=== PATIENT | female | born 1960 | race Caucasian/White ===

== ENCOUNTER 2017-01-14 07:25 | Day surgery (SDC) | payer MEDICARE, MEDICAID ==
[2016-12-23 07:24] VITALS: BMI 24.1
[2017-01-14] MEDS ORDERED: Bupivacaine HCl 0.5% PF (10 ml) Inj ONE (08:53)
[2017-01-14] MEDS ORDERED: Bacitracin 500 Units/gm Oint Foilpak UD ONE (08:53)
[2017-01-14] MEDS ORDERED: ceFAZolin IV 1 gm in Dextrose 1 GM/50 ML BAG IVPB ONE (08:53)
[2017-01-14] MEDS ORDERED: Lactated Ringer's 1,000 ML IV ONE (09:25)
[2017-01-14] MEDS ORDERED: Propofol 10 mg/ml Inj (20 ML) ONE ×2 (09:31→09:49)
[2017-01-14] MEDS ORDERED: Midazolam 2 MG/2 ML VIAL ONE (09:31)
[2017-01-14] MEDS ORDERED: Lidocaine 1% w Epi 1:100,000 Inj ONE (09:32)
[2017-01-14] MEDS ORDERED: Lidocaine Hydrochloride 5 ML INJ ONE (10:10)
[2017-01-14] MEDS ORDERED: Oxycodone/Acetaminophen 5/325 mg Tab PO PRN (10:20)
--- NOTE | 2017-01-14 10:20 | PCM.SURG1 ---
Surgeon's Initial Post Op Note - Surgeon's Notes Surgeon: Dr. Nicky Chávez Zipper Lining Folder: Carrie Velazquez, PGY2; Bran Benavidez, OMS3 Pre-Operative Diagnosis: Left wrist ganglion cyst Operative Findings: ganglion cyst of the left wrist Post-Operative Diagnosis: same Operation Performed: Left wrist ganglion cyst excision Specimen/Specimens Removed: ganglion cyst Estimated Blood Loss: EBL {In ML}: 3 Date of Surgery/Procedure: 01/14/17 Time of Surgery/Procedure: 09:30
[2017-01-14] MEDS ORDERED: HYDROmorphone 0.5 mg/0.5 ml ISec IVP PRN (10:27)
[2017-01-14] MEDS ORDERED: Lactated Ringer's 1,000 ML IV SCH (10:30)
[2017-01-14] MEDS ORDERED: Lactated Ringer's 500 ML IV ONE (11:40)
[2017-01-14 12:59] VITALS: BP 128/81; PULSE 65; RESP 16; TEMP 97.6; O2SAT 99
--- NOTE | 2017-01-20 23:10 | OP ---
PROCEDURE DATE: 01/14/2017 SURGEON: Nicky Chávez MD. VICE PRESIDENT SALES: Carrie Velazquez DO and MS III Bran Reema. PREOPERATIVE DIAGNOSIS: Left volar wrist ganglion. POSTOPERATIVE DIAGNOSIS: Left volar wrist ganglion. ANESTHESIA: Wrist block by surgeon and sedation. PROCEDURE: 1. Wrist block of left wrist. 2. Excision of volar wrist ganglion. ESTIMATED BLOOD LOSS: 10 mL. COUNT: Lap, sponge, needle count were correct at the end of the case. TOURNIQUET TIME: 15 minutes. CONDITION: Patient was stable upon discharge to recovery. INDICATIONS FOR SURGERY: Patient is a 56-year-old female with a left wrist volar ganglion. She is being worked up for cervical spine issues and has some mild carpal tunnel but the ganglion bothers her and would like to have this addressed. She is here for elective excision. PROCEDURE: Surgery is as follows. Patient was identified in the holding area. Left wrist was marked. She was then brought to the operating room and laid supine on the operating room table. Once sedation was provided, the left wrist was blocked with 10 mL of 1% lidocaine, 0.5% Marcaine, and 50:50 mixture in order to block the median nerve, ulnar nerve, radial, sensory and ulnar sensory nerves. The arm was then placed in a tourniquet, prepped and draped in a usual sterile fashion. Using an Esmarch, the arm was exsanguinated and tourniquet inflated to 250 mm of pressure for a total of 15 minutes. Using a sinusoidal incision along the volar radial aspect of the wrist, a 1.5 cm incision was made down through skin and dermis. The cyst was noted immediately under the skin and pressing the radial artery radially. Tenotomy scissors were used to carefully dissect the ganglion from the surrounding skin and from the surrounding tissue. The stalk appeared to be coming from the radial carpal joint and was fairly wide based stock. At the base of the ganglion, the stalk was divided with tenotomy scissors and then electrocautery was used to cauterize the base of the ganglion. The radial artery was noted to be intact. Once the tourniquet was deflated with a good bounding pulse. The wound was irrigated and incision closed using 4-0 Monocryl to the deep dermis, followed by 4-0 Monocryl, running subcuticular. A soft dressing was then applied with bacitracin, Adaptic, 4 x 4 gauze, Webril and secured in place with an Donal wrap. Patient tolerated the procedure well, was transferred to the stretcher and brought to recovery in stable condition. Nicky Chávez MD [facility]
== END 2017-01-14 12:15 | disposition home or self-care (01) ==
LOC: C.SDS 07:25
PROVIDERS: ATTEND Plastic Surgery Surgery of the Hand
DX: M67.432 Ganglion, left wrist (principal)
CPT/HCPCS: 25111; 88304; J0690; J2250; J2405; J2704; J3010; J7120